=== PATIENT | female | born 1990 | race Caucasian/White ===

== ENCOUNTER 2023-11-07 14:31 | Emergency (ER) | payer BC, MEDICAID, OTHER ==
[~2023-11-07] VITALS: Ht 162.6 cm; Wt 72.8 kg
[~2023-11-07 14:31] MED LIST: DULO60CA41 PO; FLUO20CA19 PO; GABA600T PO; LEVE500T40 PO; LORA-205 PO; TOPI100T29 PO
[2023-11-07 15:05] LABS: Urine Amorphous Crystal FEW /hpf (None Seen); Urine Bacteria MOD /hpf (None Seen); Urine Blood Negative /uL (Negative); Urine Clarity Ex.Turbid (Clear); Urine Color Light-Brown (Yellow); Urine Mucus FEW (None Seen); Urine Protein, UAD TRACE (Negative); Urine Specific Gravity 1.016 (1.001-1.035); Urine Urobilinogen Normal (Negative); Urine WBC 14 /hpf (0 - 5); Urine WBC Clumps PRESENT /hpf (None Seen)
[2023-11-07] MEDS ORDERED: PROMETHAZINE HCL 6.25 MG/5 ML ORAL SYRUP PO ONE (15:45)
[2023-11-07] MEDS: methylPREDNISolone SOD SUCC 125 MG/2 ML VL IM ONE (15:45)
[2023-11-07 15:56] VITALS: PULSE 130; RESP 18; O2SAT 97
[2023-11-07] MEDS: ALBUTEROL SULF 2.5 MG/0.5ML(0.5%) NEB SOLN NEB ONE (15:57)
[2023-11-07] MEDS: IPRATROPIUM BROM 0.5 MG/2.5ML INH SOL NEB ONE (15:57)
[2023-11-07 18:00] VITALS: BP 122/80; PULSE 100; RESP 18; TEMP 98.9; O2SAT 98
[2023-11-07] MEDS ORDERED: PRED20TA2 PO (18:00)
[2023-11-07] MEDS ORDERED: IBUP-1456 PO (18:00)
[2023-11-07] MEDS ORDERED: DOXY1LIQ18 PO (18:00)
[2023-11-07] MEDS ORDERED: PROM1SOL4 PO (19:45)
== END 2023-11-07 18:30 | disposition home or self-care (01) ==
LOC: ER 14:31
DX: R05.9 Cough, unspecified (principal); M25.571 Pain in right ankle and joints of right foot; E11.9 Type 2 diabetes mellitus without complications; F17.210 Nicotine dependence, cigarettes, uncomplicated; R06.02 Shortness of breath; R07.89 Other chest pain
CPT/HCPCS: 71045; 73600; 81001; 93005; 94640; 96372; 99285; J2930; J7644

== ENCOUNTER 2024-01-12 12:55 | Emergency (ER) | payer MEDICAID ==
[~2024-01-12] VITALS: Ht 165.1 cm; Wt 67.2 kg
[~2024-01-12 12:55] MED LIST changes: +DOXY1LIQ18 PO; +IBUP-1456 PO; +PRED20TA2 PO; +PROM1SOL4 PO
[2024-01-12 14:00] VITALS: PULSE 77; RESP 14; O2SAT 97
[2024-01-12 15:00] VITALS: TEMP 98.1
[2024-01-12 15:58] LABS: Basophils # (auto) 0 10 ^3/uL (0-0.2); Basophils % (auto) 0.5 % (0.0-2.0); Eosinophils # (auto) 0 10 ^3/uL (0-0.8); Eosinophils % (auto) 0.6 % (0.0-7.0); Hematocrit 40.1 % (36.0-46.0); Hemoglobin 13.6 g/dL (12.2-16.2); Lymphocytes # (auto) 1.5 10 ^3/uL (0.4-5.4); Lymphocytes % (auto) 24.9 % (10.0-50.0); Mean Corpuscular Hemoglobin 31.5 pg (28.0-32.0); Mean Corpuscular Volume 92.6 fL (80.0-100.0); Monocytes # (auto) 0.4 10 ^3/uL (0-1.3); Monocytes % (auto) 6.8 % (0.0-12.0); Neutrophils # (auto) 3.9 10 ^3/uL (1.6-8.6); Neutrophils % (auto) 67.2 % (37.0-80.0); Nucleated Red Blood Cells % 0.1 %; Red Blood Cells 4.33 10^6/uL (4.0-5.20); Red Cell Distribution Width 14.2 % (11.8-14.3); White Blood Cell 5.8 10^3/uL (4.4-10.8)
[2024-01-12 18:00] VITALS: BP 111/72; PULSE 77; RESP 13; O2SAT 95
[2024-01-12 18:03] LABS: Anion Gap 12 (5-15); Carbon Dioxide 16 mmol/L (20-30); Chloride 112 mmol/L (98-107); Potassium 3.6 mmol/L (3.5-5.1); Sodium 140 mmol/L (136-145)
[2024-01-12 18:04] LABS: Calcium 9.3 mg/dL (8.5-10.1)
[2024-01-12 18:09] LABS: BUN/Creatinine Ratio 15.2 (10.0-20.0); Blood Urea Nitrogen 14 mg/dL (9-23); Glucose 100 mg/dL (74-106)
== END 2024-01-12 18:23 | disposition home or self-care (01) ==
LOC: ER 12:55
DX: R56.9 Unspecified convulsions (principal)
CPT/HCPCS: 36415; 70450; 80048; 85025

== ENCOUNTER 2025-06-04 10:49 | Emergency (ER) | payer MEDICAID ==
[~2025-06-04] VITALS: Ht 165.1 cm; Wt 63.2 kg
--- NOTE | 2025-06-04 11:08 | ECG ---
[facility] Test Date: 2025-06-04 Test Time: 11:01:33 Pat Name: JEFFREY FRANCIS Department: ED Room: Gender: F Manager Fashion: ANNA : 1990 Requested By: RAMIRO DRIVER Order Number: [id number] Reading MD: Justin Schultz Measurements Intervals [place] Rate: 114 P: 0 DE: 0 QRS: 77 QRSD: 80 T: 29 QT: 303 QTc: 418 Interpretive Statements Atrial fibrillation Baseline wander in lead(s) II,III,aVF,V4 Electronically Signed On 06-07-2025 15:00:56 PST by Justin Schultz Please click the below link to view image of tracing.
--- NOTE | 2025-06-04 12:37 | ED.PDOC ---
Musculoskeletal HPI Comments This is a 34 year-old female, who presents to the ED with a chief complaint of L lower extremity pain and swelling for X3 days. Pt tachycardic at 130s. Pt has a vagus stimulator to improve elevated HR. Patient has no further complaints at this time and otherwise denies any trauma/injury, N/V, fever, chills, or weakness. Chief Complaint: Lower Extremity Time Seen by MD: 12:41 Primary Care Provider: unknown Reviewed Notes: Medications, Allergies Allergies: Coded Allergies: Phenytoin (Verified Allergy, Unknown, 08/11/12) Uncoded Allergies: LYRICA (Allergy, Unknown, 06/04/25) Home Meds Active Scripts Promethazine-Dm (Promethazine Dm 6.25-15 mg/5Ml) 1 Elizabeth Elizabeth, 5 ML PO TID PRN, #240 ML Prov:MAXIM MALIKP 11/07/23 Prednisone (Prednisone) 20 Mg Tab, 20 MG PO DAILY for 5 Days, #5 MG Prov:MAXIM MALIK 11/07/23 Doxylamine W/ Dm-GG (Robitussin Dm Max Day/Nig) 1 Liq Liq, 1 LIQ PO TID PRN, #240 LIQ Prov:MAXIM MALIKP 11/07/23 Ibuprofen (Ibuprofen) 800 Mg Tab, 1 TAB PO TID, #90 TAB 1 Refill Prov:MAXIM MALIK 11/07/23 Reported Medications Gabapentin (Neurontin) 600 Mg Tab, 600 MG PO QID 10/23/12 Fluoxetine Hcl (Pmdd) (Fluoxetine) 20 Mg Cap, 40 MG PO DAILY 10/23/12 Duloxetine Hcl (Cymbalta) 60 Mg Cap, 90 MG PO DAILY 10/23/12 Lorazepam (Ativan) 1 Mg Tab, 1 MG PO PRN 10/23/12 Topiramate (Topamax) 100 Mg Tab, 100 MG PO TID 08/11/12 Levetiracetam (Keppra) 500 Mg Tab, 500 MG PO 08/11/12 Information Source: Patient Mode of Arrival: Ambulatory Location: Left Extremity Location: Leg Timing: Days Severity: Moderate Onset of Symptoms: Spontaneous Symptoms: Swelling, Pain Associated signs and symptoms: Knee pain, Leg pain Past Medical History PAST MEDICAL HISTORY: Seizures Past Medical History (Other): [employer] History: No Pertinent [employer] History Family History Family History: No family hx of DM, No family hx of Heart kishore, No family hx of HTN Social History Smoker: Non-Smoker Alcohol: Rarely Drugs: Denies Drug Use Lives In: Home Constitutional: denies: chills, diaphoresis, fatigue, fever, malaise, sweats, weakness, others EENTM: denies: blurred vision, double vision, ear bleeding, ear discharge, ear drainage, ear pain, ear ringing, eye pain, eye redness, hearing loss, mouth pain, mouth swelling, nasal discharge, nose bleeding, nose congestion, nose pain, photophobia, tearing, throat pain, throat swelling, voice changes, others Respiratory: denies: cough, hemoptysis, orthopnea, SOB at rest, shortness of breath, SOB with excertion, stridor, wheezing, others Cardiovascular: denies: chest pain, dizzy spells, diaphoresis, Dyspnea on exertion, edema, irregular heart beat, left arm pain, lightheadedness, palpitations, PND, syncope, others Gastrointestinal: denies: abdomen distended, abdominal pain, blood streaked bowels, constipated, diarrhea, dysphagia, difficulty swallowing, hematemesis, melena, nausea, poor appetite, poor fluid intake, rectal bleeding, rectal pain, vomiting, others Genitourinary: denies: abnormal vagina bleeding, burning, dyspareunia, dysuria, flank pain, frequency, hematuria, incontinence, pain, , vagina discharge, urgency, others Neurological: denies: dizziness, fainting, headache, left sided numbness, left sided weakness, numbness, paresthesia, pre-existing deficit, right sided numbness, right sided weakness, seizure, speech problems, tingling, tremors, weakness, others Musculoskeletal: reports: joint pain Integumetry: denies: bruises, change in color, change in hair/nails, dryness, laceration, lesions, lumps, rash, wounds, others Allergic/Immunocompromised: denies: Difficulty Healing, Frequent Infections, Hives, Itching, others Hematologic/Lymphatic: denies: anemia, blood clots, easy bleeding, easy bruising, swollen glands, others Endocrine: denies: excessive hunger, excessive sweating, excessive thirst, excessive urination, flushing, intolerance to cold, intolerance to heat, unexplained weight gain, unexplained weight loss, others Psychiatric: denies: anxiety, bipolar disorder, depression, hopeless, panic disorder, schizophrenia, sleepless, suicidal, others All Other Systems: Reviewed and Negative Physical Exam General Appearance: Moderate Distress HEENT: Normal ENT Inspection, Pharynx Normal, TMs Normal Neck: Full Range of Motion, Non-Tender, Normal, Normal Inspection Respiratory: Chest Non-Tender, Lungs Clear, No Accessory Muscle Use, No Respiratory Distress, Normal Breath Sounds Cardiovascular: No Edema, No JVD, No Murmur, No Gallop, Normal Peripheral Pulses, Regular Rate/Rhythm Breast Exam: Deferred Gastrointestinal: No Organomegaly, Non Tender, No Pulsatile Mass, Normal Bowel Sounds, Soft Genitalia: Deferred Pelvic: Deferred Rectal: Deferred Extremities: Swelling (Left lower extremity) Musculoskeletal : Apperance: Normal Neurologic: Alert, cutting table operator first II-XII nml as Tested, No Motor Deficits, Normal Affect, Normal Mood, No Sensory Deficits Cerebellar Function: Normal Reflexes: Normal Skin: Dry, Normal Color, Warm Peripheral Pulses: 3+ Radial (R), 3+ Radial (L) Lymphatic: No Adenopathy Was a procedure done? Was a procedure done?: No EKG EKG : Pulse Rate (adult): 114 [place]: Normal Cardiac Rhythm: Afib Block: None Hypertrophy: None ST: Normal Differential Diagnosis EXT Differential Diagnosis: Fracture, Sprain, Arthritis X-Ray, Labs, Meds, VS Vital Signs Date Time Temp Pulse Resp B/P (MAP) Pulse Ox O2 Delivery O2 Flow Rate FiO2 06/04/25 12:37 114 06/04/25 11:01 114 06/04/25 10:52 98.1 135 20 131/75 99 98.1 Patient alert. Complaining of extremity swelling. Vitals stable. Answering questions. Ultrasound reviewed does not show any acute changes. Was given prescription of Motrin. Explained to the patient. Was told to follow up with happened her primary care physician. Was told to come back if there is any problem. Time of 1ST Reevaluation: 13:19 Reevaluation 1ST: Unchanged Patient Education/Counseling: Diagnosis, Treatment Family Education/Counseling: No Family Present Departure 1 Departure Time of Disposition: 15:24 Impression: Primary Impression: Musculoskeletal strain Disposition: HOME / SELF CARE / HOMELESS Condition: Good Discharged With: Self Critical Care Note Critical Care Time?: No Stability Stability form required: No Heart Score Heart Score: Heart Score Response (Comments) Value History N/A 0 EKG N/A 0 Age N/A 0 Risk Factors N/A 0 Troponin N/A 0 Total 0 I personally scribed for RAMIRO DRIVER MD ([email or web address]) on 06/04/25 at 12:37. Electronically submitted by Amparo Delgado ([email or web address]). I personally scribed for RAMIRO DRIVER MD ([email or web address]) on 06/04/25 at 13:08. Electronically submitted by Amparo Delgado ([email or web address]). I personally scribed for RAMIRO DRIVER MD ([email or web address]) on 06/04/25 at 13:09. Electronically submitted by Amparo Delgado ([email or web address]). RAMIRO DRIVER MD Jun 04, 2025 12:37
--- NOTE | 2025-06-04 15:06 | DVH ---
US LT Lower DVT History: dvt Comparison: None Technique: Realtime grayscale, color flow, and Doppler ultrasound images of the deep venous structures with spectral waveform analysis were obtained. Doppler spectral waveform analysis of the left lower extremity veins was performed. Findings: Left Lower Extremity: Left common femoral vein: Normal compressibility and flow. Left femoral vein: Normal compressibility and flow. Left popliteal vein: Normal compressibility and flow. IMPRESSION: NO SONOGRAPHIC EVIDENCE FOR DEEP VENOUS THROMBOSIS IN THE LEFT LOWER EXTREMITY VEINS.
[2025-06-04 16:44] VITALS: BP 126/74; PULSE 76; RESP 18; TEMP 97.6; O2SAT 98
== END 2025-06-04 16:52 | disposition home or self-care (01) ==
LOC: ER 10:49
DX: S86.912A Strain of unspecified muscle(s) and tendon(s) at lower leg level, left leg, initial encounter (principal); I48.91 Unspecified atrial fibrillation; Z79.52 Long term (current) use of systemic steroids; Z79.899 Other long term (current) drug therapy; X58.XXXA Exposure to other specified factors, initial encounter; Y93.89 Activity, other specified; Y92.89 Other specified places as the place of occurrence of the external cause; Y99.8 Other external cause status
CPT/HCPCS: 93005; 93971